=== PATIENT | male | born 1940 | race Caucasian/White ===

== ENCOUNTER → 2018-12-30 | Outpatient (CLI) | payer MEDICARE, OTHER ==
[~2018-12-30] MED LIST: HYDR-3731 PO
--- NOTE | 2018-12-30 19:19 | Diagnostic Imaging Report ---
INDICATION: Bilateral knee pain. EXAMINATION: AP, oblique, and lateral views of both knees are obtained. FINDINGS: No fracture or acute bony abnormality is seen. There is no overt joint effusion. Joint spaces appear preserved on both sides. There is no lytic or blastic lesion. IMPRESSION: Negative bilateral knees. Dictated by: Dictated on workstation # [id number]
== END ==
LOC: RAD 13:42
PROVIDERS: ATTEND Internal Medicine
DX: C61 Malignant neoplasm of prostate (principal); M48.061 Spinal stenosis, lumbar region without neurogenic claudication; I10 Essential (primary) hypertension; M25.561 Pain in right knee; M25.562 Pain in left knee

== ENCOUNTER 2022-02-01 05:32 | Outpatient (CLI) | payer MEDICARE, OTHER ==
[~2022-02-01] VITALS: Ht 177.8 cm; Wt 109.0 kg
[2022-02-01] MEDS ORDERED: LANS30TA9 PO (09:37)
[2022-02-01] MEDS ORDERED: FAMO20TA3 PO (09:37)
[2022-02-01] MEDS ORDERED: AMLO-251 PO (09:37)
== END 2022-02-01 13:31 | disposition home or self-care (01) ==
LOC: PREOP 05:32
PROVIDERS: ATTEND Surgery
DX: Z01.818 Encounter for other preprocedural examination (principal)

== ENCOUNTER 2022-02-03 10:58 | Day surgery (SDC) | payer MEDICARE, OTHER ==
[~2022-02-03] VITALS: Ht 178 cm; Wt 109.0 kg
[2022-02-03] VITALS (8 sets, daily range): BP systolic 125–145; BP diastolic 70–91
[~2022-02-03 10:58] MED LIST changes: +AMLO-251 PO; +FAMO20TA3 PO; +LANS30TA9 PO
[2022-02-03] MEDS ORDERED: ceFAZolin 2 GM IV Premixed 50 ML ONE (12:18)
--- NOTE | 2022-02-03 12:26 | Progress Note-Pre Operative ---
Pre-Operative Progress Note H&P Reviewed The H&P was reviewed, patient examined and no changes noted. Time Seen by Provider: 12:23 Date H&P Reviewed: Feb 03, 2022 Time H&P Reviewed: 12:23 Pre-Operative Diagnosis: back mass TIMMY FLOR DO Feb 03, 2022 12:26
[2022-02-03] MEDS ORDERED: ceFAZolin 2 GM IV Premixed 50 ML IV ONE (12:30)
[2022-02-03] MEDS ORDERED: LACTATED RINGERS 1,000 ML IV PRN (12:30)
[2022-02-03] MEDS ORDERED: LIDOCAINE PF 2% 5 ML (XYLOCAINE) VIAL ONE (13:00)
[2022-02-03] MEDS ORDERED: SEVOFLURANE (ULTANE) 15 ML INHAL SOLN ONE ×2 (13:00→13:32)
[2022-02-03] MEDS ORDERED: fentaNYL INJ 100 MCG/2 ML AMP ONE (13:00)
[2022-02-03] MEDS ORDERED: proPOfol 200 MG/20 ML (DIPRIVAN) VIAL IV ONE (13:00)
[2022-02-03] MEDS ORDERED: ONDANSETRON 4 MG/2 ML (SDV) Z0FRAN ONE (13:00)
[2022-02-03] MEDS ORDERED: LIDOCAINE/EPI 2% 1:200,00 (XYLOCAINE) 20 ML VIAL ONE (13:10)
[2022-02-03] MEDS ORDERED: KETOROLAC 30 MG/ML VIAL ONE (13:32)
[2022-02-03] MEDS ORDERED: ROCURONIUM 50 MG/5 ML (ZEMURON) VIAL IV ONE (13:32)
--- NOTE | 2022-02-03 13:42 | Progress Note-Post Operative ---
Post-Operative Progess Note Surgeon (s)/Belt Maker (s) Surgeon TIMMY FLOR DO Belt Maker: none Pre-Operative Diagnosis back mass Post-Operative Diagnosis same pending pathology Procedure & Operative Findings Date of Procedure 02/03/22 Procedure Performed/Findings Excision of back mass, 4.3cm incision Anesthesia Type GET Estimated Blood Loss Estimated blood loss (mL): scant Specimens/Packing Specimens Removed back mass TIMMY FLOR DO Feb 03, 2022 13:42
[2022-02-03] MEDS ORDERED: ACHD5005 PO (13:43)
--- NOTE | 2022-02-03 13:45 | Discharge Inst-Surgical ---
Discharge Inst-Surgical Depart Medication/Instructions New, Converted or Re-Newed RX: Transmitted to Pharmacy Patient Instructions Follow up Appt: Make appointment for 1 week. [phone] Instructions: May shower in 24 hours, no tub bath or soaking. Use incentive spirometer at home as directed. No Smoking Skin/Wound Care: May remove bandages in am. You need to leave the sutures in place and come to the office to have them removed. Symptoms to Report: Appetite Changes, Extremity Discoloration, Numbness/Tingling, Swelling Increased, Bleeding Excessive, Eyesight Changes, Pain Increased, Urine Color Change, Constipation(Persistent), Fever over 101 degree F, Pain/Pressure in chest, Urinating Difficulty, Cough Up/Vomit Blood, Heart Beat Irreg/Pounding, Pain/Pressure in jaw, Cramps in feet or legs, Lightheadedness, Pain/Pressure in shoulder, Diarrhea(Persistent), Memory Changes Suddenly, Questions/Concerns, Weight gain consecutive days, Dizziness/Fainting, Nausea/Vomiting, Shortness of Breath, Weight gain over 2 pounds If questions or concerns contact your physician Or seek help at emergency department. Activity Activity as Tolerated: Yes Activity Instructions: Avoid Stress to Incision Driving Instructions: No Driving/Refer to Dr. Islas Discharge Diet: No Restrictions Diet After 24 Hours: Clear Liquid if Nauseous If Any Problems/Questions/Issu: Contact Your Physician, Go to Emergency Room Skin/Wound Care Infection Signs and Symptoms: Increased Redness, Foul Odor of Wound, Increased Drainage, Skin Itchy or Has a Rash, Increased Swelling, Temperature Above 101 F Bathing Instructions: Shower Stitches/[place]/Dermabond Dis: Care of Stitches TIMMY FLOR DO Feb 03, 2022 13:45
--- NOTE | 2022-02-03 13:52 | Anesthesia-General Post-Op ---
General Patient Condition Mental Status/LOC: Same as Preop Cardiovascular: Satisfactory Nausea/Vomiting: Absent Respiratory: Satisfactory Pain: Controlled Complications: Absent Post Op Complications Complications None Follow Up Care/Instructions Patient Instructions None needed. Anesthesia/Patient Condition Patient Condition Patient is doing well, no complaints, stable vital signs, no apparent adverse anesthesia problems. No complications reported per nursing. [place] [facility] [place] Yes LYNDA DANIEL CRNA Feb 03, 2022 13:52
[2022-02-03] MEDS ORDERED: ONDANSETRON 4 MG/2 ML (SDV) Z0FRAN IVP PRN (14:00)
[2022-02-03] MEDS ORDERED: HYDROmorphone 2 MG/ML VIAL (DILAUDID) IV ONE (14:00)
--- NOTE | 2022-02-04 02:04 | OPERATIVE REPORT ---
DATE OF SERVICE: 02/03/2022 PREOPERATIVE DIAGNOSIS: Back mass. POSTOPERATIVE DIAGNOSIS: Back mass, pending pathology. PROCEDURE: Excision of back mass, 4.3 cm incision. SURGEON: Girma Sanchez DO. MERCURY RECOVERER: None. ANESTHESIA: General endotracheal tube. SPECIMEN: Back mass measured about 4.3 cm x about 1.3 cm. BLOOD LOSS: Scant. FLUIDS: Per anesthesia. POSTOPERATIVE CONDITION: Stable. INDICATION FOR PROCEDURE: The patient is a 81-year-old male who has a mass on his back, it has been bothering him, flaking off, very itchy and mildly painful. He wanted to get this removed, it looked suspicious. FINDINGS: The patient had a back mass removed and sent to pathology. PROCEDURE NOTE: After informed consent was obtained, the patient was brought to the operating room. He was intubated and placed on table in prone position, sterilely prepped and draped in normal fashion. Local lidocaine was used to infiltrate the skin around this mass drawn an elliptical incision, which measured about 4.3 x 1.3 cm after infiltration was done, then made an incision with #15 blade, carried down through the skin into subcutaneous tissue, deepened down to subcutaneous tissue with Bovie electrocautery down to the subcutaneous tissue, then removed this skin and back mass. Sutured once superiorly with a short stitch and once at the 3 o'clock position laterally with a long stitch, passed this off table and sent to pathology. Copiously irrigated with normal saline. Hemostasis was obtained using Bovie electrocautery, created some small advancement flaps about 0.5 cm on either side of the incision to be able to bring this together, then closed this with 2-0 Prolene, 3 interrupted vertical mattress sutures and then 2 simple sutures. Area was cleaned and dried. A pressure dressing placed. The patient tolerated the procedure and transferred to recovery room in stable condition. Sponge, instrument and needle count correct at the end of the case. Job ID: [id number] DocumentID: [id number] Dictated Date: 02/03/2022 17:20:39 Law Office Manager Date: 02/04/2022 02:03:33 Dictated By: GIRMA SANCHEZ DO
== END 2022-02-03 15:06 | disposition home or self-care (01) ==
LOC: SDC 10:58
PROVIDERS: ATTEND Surgery
DX: C44.519 Basal cell carcinoma of skin of other part of trunk (principal); Z87.891 Personal history of nicotine dependence
CPT/HCPCS: 87081

== ENCOUNTER 2022-12-20 05:38 | Outpatient (CLI) | payer MEDICARE, OTHER ==
[~2022-12-20] VITALS: Ht 177.8 cm; Wt 106.8 kg
[~2022-12-20 05:38] MED LIST changes: +ACHD5005 PO
[2022-12-21] MEDS ORDERED: DUTA0.5C36 PO (13:30)
[2022-12-21] MEDS ORDERED: MULT200T14 PO (13:30)
[2022-12-21] MEDS ORDERED: CYCL5TAB PO (13:30)
[2022-12-21] MEDS ORDERED: CHOL200041 PO (13:30)
[2022-12-21] MEDS ORDERED: VIT1TAB.13 PO (13:30)
[2022-12-21] MEDS ORDERED: ZINC30TA2 PO (13:30)
== END 2022-12-21 13:53 | disposition home or self-care (01) ==
LOC: PREOP 05:38
PROVIDERS: ATTEND Orthopaedic Surgery
DX: Z01.818 Encounter for other preprocedural examination (principal); M75.102 Unspecified rotator cuff tear or rupture of left shoulder, not specified as traumatic

== ENCOUNTER 2022-12-27 05:54 | Day surgery (SDC) | payer MEDICARE, OTHER ==
--- NOTE | 2022-12-20 09:03 | HISTORY AND PHYSICAL ---
ADMISSION HISTORY AND PHYSICAL This will be for outpatient surgery on 12/27/2022 for left shoulder rotator cuff repair. HISTORY: The patient is an 82-year-old gentleman who fell approximately 2 months ago on his left upper extremity. He was initially treated in [place] with injections, physical therapy and activity modification; however, he has had continued pain with no improvement. An MRI was obtained, which shows a full-thickness supraspinatus tear. Due to functional impairment and failure to improve with conservative measures, the patient elected to proceed with surgical intervention. REVIEW OF SYSTEMS: No chest pain, no shortness of breath. No dysuria. PAST MEDICAL HISTORY: Hypertension, osteoarthritis, spinal stenosis of the lumbar spine, vitamin B12 deficiency. PAST SURGICAL HISTORY: Appendectomy, cholecystectomy, kidney stone removal and parathyroid. FAMILY HISTORY: Cardiovascular disease. PRIMARY CARE PROVIDER: Dr. Henderson. MEDICATIONS: Amlodipine. ALLERGIES: NO KNOWN DRUG ALLERGIES. SOCIAL HISTORY: The patient drinks alcohol occasionally. Denies tobacco use. PHYSICAL EXAMINATION: GENERAL: The patient is a well-developed, well-nourished, in no acute distress. HEENT: Normocephalic, atraumatic. Pupils are equal, round and reactive to light. Oropharynx is clear. NECK: Supple, with no lymphadenopathy. LUNGS: Clear to auscultation bilaterally. HEART: Regular rate and rhythm. ABDOMEN: Soft, nontender, nondistended. EXTREMITIES: The left shoulder demonstrates forward elevation actively by 170 degrees, but he substitutes scapulothoracic motion above 90 degrees, external rotation is 70 degrees, internal rotation is to his lower lumbar spine. He has weakness with abduction and external rotation with a positive Neer's and positive Hawkin sign. IMPRESSION: Left shoulder rotator cuff tear, unresponsive to conservative measures. PLAN: Left shoulder arthroscopy, biceps tenotomy, open rotator cuff repair. The risks, benefits, options, ramifications and recovery have been discussed at length with the patient. He understands and wishes to proceed. Job ID: [id number] DocumentID: [id number] Dictated Date: 12/08/2022 10:04:45 Sewer Connector Date: 12/08/2022 11:37:00 Dictated By: MICHAEL GRIFFITH MD
[2022-12-27] VITALS (10 sets, daily range): BP systolic 113–144; BP diastolic 64–79
[~2022-12-27] VITALS: Ht 177 cm; Wt 106.8 kg
[~2022-12-27 05:54] MED LIST changes: +CHOL200041 PO; +CYCL5TAB PO; +DUTA0.5C36 PO; +MULT200T14 PO; +VIT1TAB.13 PO; +ZINC30TA2 PO
[2022-12-27] MEDS ORDERED: ceFAZolin INJECTION 2,000 MG in NS (IVPB) 50 ML IV ONE (06:15)
[2022-12-27] MEDS: LACTATED RINGERS 1,000 ML IV PRN ×2 (06:42→08:00)
[2022-12-27] MEDS ORDERED: MIDAZOLAM 2 MG/2 ML (VERSED) VIAL ONE (06:44)
[2022-12-27] MEDS ORDERED: LIDOCAINE PF 2% 5 ML (XYLOCAINE) VIAL ONE (06:45)
[2022-12-27] MEDS ORDERED: ROPIVACAINE 5MG/ML 30ML VIAL ONE (06:45)
[2022-12-27] MEDS ORDERED: fentaNYL INJ 100 MCG/2 ML AMP ONE (06:55)
[2022-12-27] MEDS ORDERED: morphine PF (DURAMORPH) 10 MG/10 ML AMP ONE (07:11)
[2022-12-27] MEDS ORDERED: BUPIVACAINE 0.25% 30 ML (SENSORCAINE) VIAL ONE (07:11)
--- NOTE | 2022-12-27 07:27 | Progress Note-Pre Operative ---
Pre-Operative Progress Note Date of Available H&P: December 20, 2022 Date H&P Reviewed: December 27, 2022 Time H&P Reviewed: 07:11 Changes from last HP none Pre-Operative Diagnosis: left rotator cuff tear MICHAEL GRIFFITH MD December 27, 2022 07:27
--- NOTE | 2022-12-27 07:29 | Progress Note-Post Operative ---
Post-Operative Progess Note Surgeon (s)/Log Sawyer (s) Surgeon MICHAEL GRIFFITH MD Log Sawyer: Cyril Raza Pre-Operative Diagnosis left rotator cuff tear Post-Operative Diagnosis left rotator cuff and SLAP tears Procedure & Operative Findings Date of Procedure 12/27/22 Procedure Performed/Findings left shoulder arthroscopic acromioplasty, biceps tenotomy and open rotator cuff repair Anesthesia Type GETA plus interscalene Estimated Blood Loss Estimated blood loss (mL): minimal Specimens/Packing Specimens Removed none Packing: none MICHAEL GRIFFITH MD December 27, 2022 07:29
[2022-12-27] MEDS ORDERED: oxyCODONE/APAP 5/325MG (PERCOCET 5) TABLET PO PRN (07:30)
[2022-12-27] MEDS ORDERED: PHENYLEPHRINE 100 MCG/ML 10 ML (ANESTHESIA) SYR ONE (08:08)
[2022-12-27] MEDS ORDERED: NEOSTIGMINE (BLOXIVERZ ) 1 MG/1ML 10 ML VIAL ONE (08:30)
[2022-12-27] MEDS ORDERED: GLYCOPYRROLATE 0.2 MG/ML (ROBINUL) 2 ML VIAL ONE (08:30)
[2022-12-27] MEDS ORDERED: ROCURONIUM 50 MG/5 ML (ZEMURON) VIAL IV ONE (08:32)
[2022-12-27] MEDS ORDERED: proPOfol 200 MG/20 ML (DIPRIVAN) VIAL IV ONE (08:32)
[2022-12-27] MEDS ORDERED: ONDANSETRON 4 MG/2 ML (SDV) Z0FRAN ONE (08:32)
[2022-12-27] MEDS ORDERED: SEVOFLURANE (ULTANE) 15 ML INHAL SOLN ONE (08:39)
--- NOTE | 2022-12-27 08:49 | Anesthesia-General Post-Op ---
General Patient Condition Mental Status/LOC: Same as Preop Cardiovascular: Satisfactory Nausea/Vomiting: Absent Respiratory: Satisfactory Pain: Controlled Complications: Absent Post Op Complications Complications None Follow Up Care/Instructions Patient Instructions None needed. Anesthesia/Patient Condition Patient Condition Patient is doing well, no complaints, stable vital signs, no apparent adverse anesthesia problems. No complications reported per nursing. ANAID VELASCO CRNA December 27, 2022 08:49
[2022-12-27] MEDS ORDERED: morphine INJ 10 MG/ML 1ML (SYR OR VIAL) IVP ONE (09:00)
[2022-12-27] MEDS ORDERED: ONDANSETRON 4 MG/2 ML (SDV) Z0FRAN IVP PRN (09:00)
--- NOTE | 2022-12-27 16:53 | OPERATIVE REPORT ---
DATE OF SERVICE: 12/27/2022 PREOPERATIVE DIAGNOSIS: Chronic left rotator cuff tear. POSTOPERATIVE DIAGNOSES: 1. Chronic left rotator cuff tear. 2. Left shoulder SLAP tear. PROCEDURES: 1. Left shoulder open rotator cuff repair. 2. Left shoulder arthroscopic biceps tenotomy. 3. Left shoulder arthroscopic acromioplasty. SURGEON: Lewis Mayer MD TECHNICAL SERVICE REPRESENTATIVE: Cyril Raza, who assisted throughout the procedure and closed the incisions. ANESTHESIA: General endotracheal plus interscalene nerve block by Jeffery Canas CRNA. ESTIMATED BLOOD LOSS: Minimal. DRAINS: None. COMPLICATIONS: None. POSTOPERATIVE PLAN: Passive range of motion with sling wear for 4 weeks. The patient was transferred to the recovery room awake and stable condition. STATEMENT OF MEDICAL NECESSITY: The patient is an 82-year-old right hand dominant gentleman who fell several months ago on his left upper extremity. He was initially treated by an outside physician with injections. Ultimately, an MRI was obtained, which revealed a full-thickness supraspinatus tear. Due to functional impairment and failure to improve with conservative measures, the patient elected to proceed with surgical intervention. Examination under anesthesia revealed forward elevation 170 degrees, external rotation 90 degrees, internal rotation of 70 degrees. Arthroscopic findings demonstrated a 3 x 2 cm full-thickness supraspinatus tear with good quality tendon. There was a type 2 SLAP tear. The glenoid and humeral head demonstrated no gross chondral abnormalities. The remainder of the rotator cuff was intact. The remainder of the labrum was intact. Subacromial space demonstrated moderate bursitis with sloping of the anterolateral acromion. DESCRIPTION OF PROCEDURE: After risks and benefits of the procedure were discussed and questions were answered and informed consent was signed and placed on the chart, the operative site was confirmed in the preoperative holding area initialed by surgeon. The patient was then transported to the operating room and after adequate levels of general endotracheal anesthetic were obtained, a timeout was called, confirming the operative site. An examination under anesthesia was performed with the above findings noted. The left shoulder and upper extremity were prepped and draped in the usual sterile fashion. The left shoulder joint was injected with 20 mL of fluid as well as subacromial space. A standard posterior portal was placed under direct visualization. Anterior portal was created in the interval between the subscapularis, biceps and glenoid. The biceps anchor was released. The stump was debrided with a shaver. The scope was redirected in the subacromial space. Lateral portal was created. A bursectomy was performed and acromion was planed to a flat type 1 acromion. A lateral portal was then extended. The deltoid was split in line with its fibers leaving attached to the acromion for later reapproximation. The rotator cuff tear was mobilized and two corkscrew type anchors were placed and a modified Yariel-Walter repair was performed with excellent repair obtained. The tissue quality was excellent. Repair was excellent. The wound was copiously irrigated. The deltoid was repaired in a aeds-yc-ciew fashion using #2 FiberWire in noqrcd-jo-lclmb interrupted fashion. The wound was further irrigated. A 3-0 Vicryl was used to reapproximate subcutaneous tissue. Skin was closed with a 3-0 nylon running alternating horizontal mattress fashion. The portal sites were closed with 3-0 nylon in simple interrupted fashion. The shoulder joint was injected with Duramorph. The port sites were infiltrated with plain Marcaine as well as the incision. A soft dressing and sling were applied. The patient was transferred to the recovery room awake and in stable condition. Job ID: [id number] DocumentID: [id number] Dictated Date: 12/27/2022 08:41:02 Casting Assistant Date: 12/27/2022 16:51:00 Dictated By: LEWIS MAYER MD
== END 2022-12-27 10:50 | disposition home or self-care (01) ==
LOC: SDC 05:54
PROVIDERS: ATTEND Orthopaedic Surgery
DX: M75.102 Unspecified rotator cuff tear or rupture of left shoulder, not specified as traumatic (principal); S43.432A Superior glenoid labrum lesion of left shoulder, initial encounter; G47.33 Obstructive sleep apnea (adult) (pediatric); Z87.891 Personal history of nicotine dependence; Z99.81 Dependence on supplemental oxygen
CPT/HCPCS: 23412; 29822; 29826; 87081; C1713